=== PATIENT | female | born 1975 | race Caucasian/White ===

== ENCOUNTER 2017-05-13 21:52 | Emergency (ER) | payer OTHER ==
[~2017-05-13] VITALS: Ht 162.6 cm; Wt 69.5 kg
[2017-05-13 21:54] VITALS: Ht 162.6 cm; Wt 69.5 kg
[2017-05-14] MEDS ORDERED: HYDR-842 PO
[2017-05-14 00:09] VITALS: BP 119/58; PULSE 74; RESP 20; TEMP 98.1
--- NOTE | 2017-05-14 00:17 | ERA ---
ER Documentation Chief Complaint Date/Time DATE: 05/14/17 TIME: 00:16 Chief Complaint anxiety HPI 42-year-old otherwise healthy female presented with a chief complaint of anxiety. Patient's brother 1 day ago. Patient since has been feeling anxious and has had difficulty sleeping. Patient has no other complaints and denies wanting to hurt her self or others. Describes no other associated manifestations. Vaccination status is up-to-date. No recent travel. Have reviewed the nursing notes and they are consistent with the history given. ROS All systems reviewed and are negative except as per history of present illness. Medications Home Meds Active Scripts Hydroxyzine Hcl* (Atarax*) 25 Mg Tab, 25 MG PO QHS Y for ITCHING for 3 Days, TAB Prov:JAIRO COFFEY PA-C 05/14/17 Allergies Allergies: Coded Allergies: No Known Allergy (Unverified , 05/13/17) PMhx/Soc Medical and Surgical Hx: pt denies Medical Hx, pt denies Surgical Hx History of Surgery: No Anesthesia Reaction: No Hx Neurological Disorder: No Hx Respiratory Disorders: No Hx Cardiac Disorders: No Hx Psychiatric Problems: Yes (anxiety) Hx Miscellaneous Medical Probl: No Hx Alcohol Use: No Hx Substance Use: No Hx Tobacco Use: No Smoking Status: Never smoker Physical Exam Vitals Vital Signs Date Time Temp Pulse Resp B/P Pulse Ox O2 Delivery O2 Flow Rate FiO2 05/14/17 00:09 98.1 74 20 119/58 98 Room Air 05/13/17 21:54 98.2 86 20 119/75 99 Physical Exam Const: Healthy-appearing. Well-nourished. Well-developed. No acute distress. Head: Normocephalic, Atraumatic. Eyes: Non-injected; No discharge or foreign body. EOMI and ASHLEY bilaterally. Ears: Normal External Ears, EACs clear, TM normal bilaterally without erythema. Nose: Normal external nose; no discharge, septal deviation, or sinus tenderness. Oral: No oral edema visualized. Mucous membranes moist and pink. Neck: No cervical lymphadenopathy, masses or goiter palpated. Trachea midline. Supple ~ No meningismus. Pulm: Good air movement in upper and lower respiratory tracts. No dyspnea, stridor, tripoding or drooling. Clear to auscultation bilaterally. Cardio: Regular rate and rhythm; No murmurs, gallops or rubs auscultated. No JVD grossly observed. Radial and posterior tibial pulses 2+ bilaterally. No cyanosis. Capillary refill less than 2 seconds. Abd: Soft, non tender, non distended. No guarding, masses. Normal bowel sounds. No McBurney's point tenderness. MS: Normal motor strength, normal tone with gross examination. Skin: No petechiae or rashes. No ulcer, induration, jaundice. Good turgor. Back: No midline, flank or CVA tenderness. Ext: No edema or palpable cord. Normal movement of all extremities grossly observed. Neur: Awake, alert and oriented x3. Neurovascularly intact bilaterally. Psych: Normal Mood and Affect. Procedures/MDM 42-year-old female presenting with a chief complaint of anxiety. Patient's signs and symptoms are most consistent with adjustment disorder as patient's brother has within the past 2 days. Patient is also complaining of insomnia. Denies wanting to hurt himself or others and I very little suspicion for homicidal or suicidal actions. I have no suspicion for organic involvement. Patient will be prescribed Atarax for anxiety and sleep with recommendation for close follow-up with PCP. I have spoken at length with the patient. The grid molder was the calibration technician. Patient has verbally acknowledged that she understands and agrees to the plan of management. Vitals are stable and current condition is appropriate for discharge. Patient will be discharged with discharge instructions and return precautions. Discharge medications: Atarax Departure Diagnosis: Primary Impression: Adjustment disorder with anxiety Condition: Stable Patient Instructions: Adjustment Disorder Referrals: [facility] YOU HAVE RECEIVED A MEDICAL SCREENING EXAM AND THE RESULTS INDICATE THAT YOU DO NOT HAVE A CONDITION THAT REQUIRES URGENT TREATMENT IN THE EMERGENCY DEPARTMENT. FURTHER EVALUATION AND TREATMENT OF YOUR CONDITION CAN WAIT UNTIL YOU ARE SEEN IN YOUR DOCTORS OFFICE WITHIN THE NEXT 1-2 DAYS. IT IS YOUR RESPONSIBILITY TO MAKE AN APPOINTMENT FOR FOLOW-UP CARE. IF YOU HAVE A PRIMARY DOCTOR --you should call your primary doctor and schedule an appointment IF YOU DO NOT HAVE A PRIMARY DOCTOR YOU CAN CALL OUR PHYSICIAN REFERRAL HOTLINE AT IF YOU CAN NOT AFFORD TO SEE A PHYSICIAN YOU CAN CHOSE FROM THE FOLLOWING [facility] [id number] [facility] [address] [facility] [facility] [address] [facility] [address] [facility] [address] [facility]. [facility] [address] Additional Instructions: Follow up with your PCP within the next 1-3 days for a more thorough evaluation and a possible referral to a specialist. Return the the emergency department immediately if symptoms worsen or change. If you have any questions regarding medications, ask your pharmacist or us before you leave. If any adverse reactions occur while taking your medications, discontinue the treatment and return to the emergency department immediately. Take your medications as directed, and complete the entire course of treatment. JAIRO COFFEY PA-C May 14, 2017 00:17
== END 2017-05-14 00:10 | disposition home or self-care (01) ==
LOC: FTE 21:52
DX: F43.22 Adjustment disorder with anxiety (principal)
CPT/HCPCS: 99283